=== PATIENT | male | born 1995 ===

== ENCOUNTER 2022-01-24 14:05 | Emergency (ER) | payer SELFPAY ==
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
[2022-01-24] MEDS ORDERED: IBUPROFEN 800 MG TAB PO ONE (16:51)
--- NOTE | 2022-01-24 16:52 | Cat Scan Report ---
CT CERVICAL SPINE WITHOUT CONTRAST INDICATION / CLINICAL INFORMATION: [facility] [place]. TECHNIQUE: Axial CT images were obtained through the cervical spine. Sagittal and coronal reformatted images wer e produced. All CT scans at this location are performed using CT dose reduction for ALARA by means of automated exposure control. COMPARISON: None available. FINDINGS: POSTOPERATIVE CHANGE:none ALIGNMENT: Loss of the normal cervical lordosis is noted. No additional abnormalities of alignment ar e identified. There is no indication of traumatic subluxation. VERTEBRAE: No indication of fracture or bone destruction. DISC SPACES: Disc height is normally maintained throughout. DEGENERATIVE CHANGES: No significant degenerative changes. CRANIOCERVICAL JUNCTION:No significant abnormality. SPINAL CANAL: Central spinal canal is adequately maintained throughout. PARASPINAL SOFT TISSUES: No significant abnormality. LUNG APICES: No significant abnormality of visualized lungs. IMPRESSION: 1. No significant abnormality on CT cervical spine without contrast.. Signer Name: Jasmeet Ibrahim MD Signed: 01/24/2022 4:48 PM Workstation Name: [id number]
--- NOTE | 2022-01-24 16:53 | Cat Scan Report ---
CT HEAD WITHOUT CONTRAST INDICATION / CLINICAL INFORMATION: [facility] – [place]. TECHNIQUE: All CT scans at this location are performed using CT dose reduction for ALARA by means of automated e xposure control. COMPARISON: None available. FINDINGS: HEMORRHAGE: No evidence of intracranial hemorrhage or extra-axial fluid collection. EXTRA-AXIAL SPACES: Cortical sulci, sylvian fissures and basilar cisterns have an unremarkable appear ance. VENTRICULAR SYSTEM: The third and lateral ventricles are of normal size and configuration. CEREBRAL PARENCHYMA: No areas of abnormal brain parenchymal attenuation are identified. There is no i ndication of recent infarction. MIDLINE SHIFT OR HERNIATION: There is no mass effect. CEREBELLUM / BRAINSTEM: Brainstem and cerebellum have an unremarkable appearance. MIDLINE STRUCTURES:No abnormalities of the pituitary gland or pineal region are identified. INTRACRANIAL VESSELS:No abnormalities are identified on this noncontrast head CT. ORBITS: visualized portions of the orbits have an unremarkable appearance. SOFT TISSUES of HEAD: No significant abnormality. CALVARIUM: Evaluation of bone windows reveals no abnormalities. PARANASAL SINUSES / MASTOID AIR CELLS: Visualized portions of the paranasal sinuses are free from inf lammatory mucosal disease. Mastoid air cells are normally pneumatized. IMPRESSION: 1. Normal head CT without contrast. Signer Name: Jasmeet Ibrahim MD Signed: 01/24/2022 4:48 PM Workstation Name: [id number]
[2022-01-24 16:56] VITALS: BP 136/87
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
== END 2022-01-24 17:18 | disposition home or self-care (01) ==
LOC: ED 14:05
DX: S13.8XXA Sprain of joints and ligaments of other parts of neck, initial encounter (principal); V87.7XXA Person injured in collision between other specified motor vehicles (traffic), initial encounter; Y93.89 Activity, other specified; Y92.488 Other paved roadways as the place of occurrence of the external cause; Y99.8 Other external cause status
CPT/HCPCS: 70450; 72125; 99284